=== PATIENT | female | born 1985 | race American Indian/Alaskan Native ===

== ENCOUNTER 2022-03-24 22:04 | Emergency (ER) | payer SELFPAY ==
[2022-03-24 22:58] VITALS: BP 162/99
== END 2022-03-25 01:00 | disposition left against medical advice (07) ==
LOC: ED 22:04
DX: K08.89 Other specified disorders of teeth and supporting structures (principal); Z53.21 Procedure and treatment not carried out due to patient leaving prior to being seen by health care provider